=== PATIENT | female | born 1985 | race African-American/Black ===

== ENCOUNTER → 2021-04-23 08:57 | Outpatient (BNVA) | payer OTHER, SELFPAY | PROVIDERS: Visit Provider Surgery | DX: E66.01 Morbid (severe) obesity due to excess calories (principal); Z68.42 Body mass index [BMI] 45.0-49.9, adult | CPT/HCPCS: 99202 ==

== ENCOUNTER 2021-05-07 07:51 | Outpatient (REF) | payer OTHER, SELFPAY ==
--- NOTE | ~2021-05-07 | XR_ITS ---
EXAMINATION: XR CHEST CLINICAL INFORMATION: Shortness of breath COMPARISON: None TECHNIQUE: 2 views of the chest were obtained. FINDINGS: No significant abnormality is noted involving the heart, lungs, mediastinum, bony thorax or soft tissues. XR/XR chest 2V IMPRESSION: Unremarkable examination.
--- NOTE | 2021-05-07 08:09 | ECG_ITS ---
Test Reason : SOB Blood Pressure : / mmHG Vent. Rate : 060 BPM Atrial Rate : 060 BPM P-R Int : 146 ms QRS Dur : 106 ms QT Int : 420 ms P-R-T Axes : 064 057 018 degrees QTc Int : 420 ms Normal sinus rhythm with sinus arrhythmia Incomplete right bundle branch block Borderline ECG No previous ECGs available Referred By: Jannet Feliz Electronically Signed By:Jordan Hirsch
[2021-05-07 08:48] LABS: MANUAL DIFF FLAG NO
[2021-05-07 08:58] LABS: Basophils Percent Auto 0.7 % (0-2); Eosinophils Absolute Auto 0.3 X10*3/uL (0.0-0.4); Eosinophils Percent Auto 6.1 % (0-4); Hematocrit 39.5 % (37-47); Hemoglobin 12.6 g/dl (12.0-16.0); Imm Gran Abs Auto 0.01 X10*3/uL (0.00-0.03); Imm Gran Pct Auto 0.2 % (0.0-0.4); Lymphocytes Absolute Auto 1.5 X10*3/uL (1.2-4.9); Mean Corpuscular HGB Conc 31.9 g/dl (31.0-35.0); Mean Corpuscular Hemoglobin 27.8 pg (27.0-33.0); Mean Platelet Volume 11.8 fL (9.4-12.3); Monocytes Absolute Auto 0.4 X10*3/uL (0.1-1.2); Monocytes Percent Auto 9.4 % (2-11); Neutrophils Absolute Auto 2.1 X10*3/uL (2.0-8.3); Neutrophils Percent Auto 49.6 % (45-73); Platelet Count 217 X10*3/uL (160-400); Red Blood Count 4.54 X10*6/uL (4.20-5.50); Red Cell Distribution Width 13.1 % (11.0-16.0); White Blood Count 4.3 X10*3/uL (4.8-10.8)
[2021-05-07 09:27] LABS: Estimated Average Glucose 103 mg/dL; Hemoglobin A1c % 5.2 %
[2021-05-07 09:37] LABS: Alanine Aminotransferase 24 U/L (0-31); Albumin Level 4.2 g/dL (3.5-5.0); Alkaline Phosphatase 72 U/L (39-117); Anion Gap 11 (12-20); Aspartate Amino Transferase 35 U/L (5-31); Bilirubin Total 0.6 mg/dL (0.0-1.0); Blood Urea Nitrogen 15 mg/dL (9-16); C Reactive Protein 1.13 mg/dL (< or = 0.50); Calcium 9.7 mg/dL (8.4-10.2); Carbon Dioxide 28 mmol/L (22-29); Chloride 103 mmol/L (96-108); Cholesterol 164 mg/dL; Estimated Glomerular Filt Rate > 60; Glucose Fasting 84 mg/dL (60-99); HDL Cholesterol 40 mg/dL; Iron 55 mcg/dL (30-160); LDL Cholesterol Calculated 111 mg/dl; Percent Iron Saturation 14 % (15-50); Potassium 4.3 mmol/L (3.3-5.1); Sodium 138 mmol/L (135-145); Total Iron Binding Capacity 398 mcg/dL (228-428); Total Protein 7.5 g/dL (6.5-8.0); Triglycerides 66 mg/dL; Unsaturated Iron Binding 343 ug/dL
[2021-05-07 09:50] LABS: Vitamin B12 511 pg/mL (200-900)
[2021-05-07 09:58] LABS: Vitamin D 25-OH Total 16.8 ng/mL (>30)
[2021-05-09 11:32] LABS: Calcium (PTHI) 9.4 mg/dL (8.6-10.2); PTHI 66 pg/mL (14-64)
[2021-05-10 06:25] LABS: Zinc 77 mcg/dL (60-130)
[2021-05-11 02:36] LABS: Vitamin A 77 mcg/dL (38-98)
[2021-05-12 11:41] LABS: Vitamin B1 7 nmol/L (8-30)
== END 2021-05-07 07:52 | disposition home or self-care (01) ==
LOC: HO.LAB 07:51
PROVIDERS: Visit Provider Surgery
DX: Z01.818 Encounter for other preprocedural examination (principal); K91.2 Postsurgical malabsorption, not elsewhere classified; R06.02 Shortness of breath; Z90.3 Acquired absence of stomach [part of]
CPT/HCPCS: 36415; 71046; 80053; 80061; 82306; 82607; 83036; 83540; 83970; 84425; 84443; 84590; 84630; 85025; 86140; 93005

== ENCOUNTER → 2021-05-08 08:18 | Outpatient (BNVA) | payer OTHER, SELFPAY | PROVIDERS: Visit Provider Surgery | DX: Z13.89 Encounter for screening for other disorder (principal) | CPT/HCPCS: Q3014 ==

== ENCOUNTER → 2021-05-24 08:06 | Outpatient (BNVA) | payer OTHER, SELFPAY | PROVIDERS: Visit Provider Dietitian, Registered | DX: E66.01 Morbid (severe) obesity due to excess calories (principal); Z68.42 Body mass index [BMI] 45.0-49.9, adult | CPT/HCPCS: 97802 ==

== ENCOUNTER → 2021-06-01 08:28 | Outpatient (BNVA) | payer OTHER, SELFPAY | PROVIDERS: Visit Provider Physician Assistant | CPT/HCPCS: Q3014 ==

== ENCOUNTER 2021-06-18 09:43 | Outpatient (REF) | payer OTHER, SELFPAY ==
[2021-06-20 13:09] LABS: H Pylori Breath Test Negative (Negative)
== END 2021-06-18 09:44 | disposition home or self-care (01) ==
LOC: HO.LNP 09:43
PROVIDERS: Visit Provider Surgery
DX: Z01.818 Encounter for other preprocedural examination (principal); E66.01 Morbid (severe) obesity due to excess calories; Z68.41 Body mass index [BMI] 40.0-44.9, adult; Z71.3 Dietary counseling and surveillance
CPT/HCPCS: 83013; 99211; 99212

== ENCOUNTER → 2021-07-02 09:18 | Outpatient (BNVA) | payer OTHER, SELFPAY | PROVIDERS: Visit Provider Physician Assistant Surgical ==

== ENCOUNTER → 2021-07-09 09:21 | Outpatient (BNVA) | payer OTHER, SELFPAY | PROVIDERS: Visit Provider Surgery | DX: E66.01 Morbid (severe) obesity due to excess calories (principal); Z68.41 Body mass index [BMI] 40.0-44.9, adult | CPT/HCPCS: 99212 ==

== ENCOUNTER → 2021-08-08 12:49 | Outpatient (BNVA) | payer OTHER, SELFPAY | PROVIDERS: Visit Provider Surgery | DX: E66.9 Obesity, unspecified (principal); Z68.39 Body mass index [BMI] 39.0-39.9, adult; Z71.3 Dietary counseling and surveillance | CPT/HCPCS: 99212 ==

== ENCOUNTER 2021-08-23 09:54 | Outpatient (REF) | payer OTHER, SELFPAY ==
--- NOTE | ~2021-08-23 | US_ITS ---
EXAMINATION: US COMPLETE ABDOMEN WITH LIVER ELASTOGRAPHY CLINICAL INFORMATION: Obesity COMPARISON: None. TECHNIQUE: Real-time imaging of the abdominal viscera. Noninvasive ultrasound liver fibrosis assessment is performed using Susan ElastPQ point quantification shear wave elastography (pSWE) with a C5-2 MHz transducer. Multiple elastography samples are obtained. FINDINGS: PANCREAS: Normal. ABDOMINAL AORTA: The proximal, middle, and distal aortic segments are normal in caliber. INFERIOR VENA CAVA: Visualized portions are normal. LIVER: Normal. The liver demonstrates normal size, contour and echogenicity. No focal lesion or intrahepatic biliary duct dilatation. The right lobe measures 17 cm in length. The left lobe measures 12 cm in length. Portal flow is normal/hepatopedal Shear wave liver elastography median stiffness is 1.2 m/s (reference: normal median stiffness is 1.3 m/s or less). IQR/median stiffness to assess sampling precision is 0.2 (reference: good quality data set is IQR/median stiffness of 0.15 or less). GALLBLADDER: Normal. The gallbladder is physiologically distended without evidence of stones, sludge, polyps, wall thickening or pericholecystic fluid. COMMON BILE DUCT: Normal in caliber measuring 0.4 cm in diameter. RIGHT KIDNEY: Normal. No hydronephrosis. No renal calculi or focal parenchymal lesions. The kidney measures 13 cm in maximum dimension. LEFT KIDNEY: Normal. No hydronephrosis. No renal calculi or focal parenchymal lesions. The kidney measures 13 cm in maximum dimension. SPLEEN: Normal. The spleen measures 11 cm in maximum dimension. FREE FLUID: None. US/US abdomen comp w elastography IMPRESSION: 1. Impression: Normal liver ultrasound. 2. Liver elastography: Slightly limited due to sampling error. Normal liver stiffness. REFERENCE: Society of Radiologists in Ultrasound Liver Stiffness Thresholds (2020): LIVER STIFFNESS THRESHOLDS: *Liver Stiffness equal or less than 1.3 m/s: High probability of being normal. *Liver Stiffness less than 1.7 m/s: In the absence of other known clinical signs, rules out compensated advanced chronic liver disease. *Liver Stiffness 1.7-2.1 m/s: Suggestive of compensated advanced chronic liver disease but need further test for confirmation. *Liver Stiffness over 2.1 m/s: Rules in compensated advanced chronic liver disease. *Liver Stiffness over 2.4 m/s: Suggestive of clinically significant portal hypertension. QUALITY OF DATA SET: *IQR/Median value equal or less than 0.15 implies a quality data set. *IQR/Median value over 0.15 implies a poor quality data set. SIGNIFICANT CHANGE FROM PRIOR EXAM: Significant change if liver stiffness measurement is 10% or greater from prior exam. OTHER CONSIDERATIONS: The stage of liver fibrosis may be overestimated in the setting of acute hepatitis, liver inflammation, elevated liver function tests, hepatic vascular congestion, obstructive cholestasis, non-fasting state, and infiltrative diseases such as amyloidosis and lymphoma. In some patients with NAFLD, the liver stiffness thresholds for compensated advanced chronic liver disease may be lower. In causes other than viral hepatitis and NAFLD, liver stiffness thresholds are not well established.
--- NOTE | ~2021-08-23 | FL_ITS ---
EXAMINATION: XR FLUOROSCOPY UPPER GI WITH AIR CLINICAL INFORMATION: Obesity. COMPARISON: None TECHNIQUE: Air-contrast upper GI examination. FINDINGS: There is normal apposition of the vocal cords while saying E. There is normal elevation of the soft palate while saying candy. Patient swallowed thin and thick barium without difficulty. No nasopharyngeal reflux or tracheal aspiration. No Zenker's diverticulum or significant cricopharyngeal hypertrophy. The esophagus demonstrated normal mucosal pattern without evidence of persistent stricture. No hiatal hernia is seen. No gastroesophageal reflux was elicited during the study including with water siphon test. The stomach demonstrates normal distensibility without abnormal mass or ulceration. There was delay in gastric emptying present with some thickened duodenal folds, question of duodenitis. Remainder of the duodenal sweep was unremarkable. FLUOROSCOPY TIME: 2.2 minutes DOSE AREA PRODUCT: 19.528 Gy-cm2 (salgado-centimeter squared) FL/FL upper GI w air IMPRESSION: Question duodenitis. Otherwise unremarkable air-contrast upper GI examination and small bowel follow-through.
== END 2021-08-23 09:55 | disposition home or self-care (01) ==
LOC: HO.US 09:54
PROVIDERS: Visit Provider Surgery
DX: Z01.818 Encounter for other preprocedural examination (principal); E66.01 Morbid (severe) obesity due to excess calories
CPT/HCPCS: 74246; 76705; 76981

== ENCOUNTER → 2021-08-27 08:22 | Outpatient (BNVA) | payer OTHER, SELFPAY | PROVIDERS: Visit Provider Surgery | DX: E66.9 Obesity, unspecified (principal); Z68.37 Body mass index [BMI] 37.0-37.9, adult | CPT/HCPCS: Q3014 ==

== ENCOUNTER → 2021-09-04 09:54 | Outpatient (BNVA) | payer OTHER, SELFPAY | PROVIDERS: Visit Provider Physician Assistant ==

== ENCOUNTER 2021-09-06 06:19 | Inpatient (IN) | payer OTHER, SELFPAY ==
[2021-09-01 08:00] LABS: Hematocrit 40.2 % (37.0-47.0); Hemoglobin 12.7 g/dl (12.0-16.0); Mean Corpuscular HGB Conc 31.6 g/dl (31.0-35.0); Mean Corpuscular Hemoglobin 27.7 pg (27.0-33.0); Mean Corpuscular Volume 87.8 fL (80.0-98.0); Mean Platelet Volume 12.4 fL (9.4-12.3); Platelet Count 171 X10*3/uL (160-400); Red Blood Count 4.58 X10*6/uL (4.20-5.50); Red Cell Distribution Width 14.6 % (11.0-16.0)
[2021-09-01 08:02] LABS: WBC ABN SCTR FOR CBC 1
[2021-09-01 08:06] LABS: INTERNATIONAL NORM RATIO 1.2 (0.9-1.1); Prothrombin Time 13.5 SEC (9.9-13.0)
[2021-09-01 08:11] LABS: Estimated Average Glucose 94 mg/dL; Hemoglobin A1c % 4.9 %
[2021-09-01 08:30] LABS: Alanine Aminotransferase 13 U/L (0-31); Alkaline Phosphatase 66 U/L (39-117); Anion Gap 12 (12-20); Aspartate Amino Transferase 17 U/L (5-31); Bilirubin Total 0.9 mg/dL (0.0-1.0); Blood Urea Nitrogen 16 mg/dL (9-16); Calcium 9.5 mg/dL (8.4-10.2); Carbon Dioxide 25 mmol/L (22-29); Chloride 106 mmol/L (96-108); Cholesterol 165 mg/dL; Estimated Glomerular Filt Rate > 60; Glucose Random 91 mg/dL (60-115); HDL Cholesterol 41 mg/dL; LDL Cholesterol Calculated 111 mg/dl; Potassium 3.9 mmol/L (3.3-5.1); Sodium 139 mmol/L (135-145); Total Protein 7.2 g/dL (6.5-8.0); Triglycerides 65 mg/dL
[2021-09-01 08:50] LABS: Band Neutrophils Percent 1 % (3-5); Eosinophils Percent Manual 6 % (0-4); Lymphocytes Percent Manual 24 % (20-40); Monocytes Percent Manual 10 % (2-11); Neutrophils Percent Manual 59 % (45-73)
[2021-09-01 08:52] LABS: Acanthocytes 1+ (0-2) /OIF; Insulin 9 uU/mL (2-29); Large Platelet PRESENT; Ovalocytes 1+ (5-14) /OIF; Platelet Estimate NORMAL (NORMAL); Platelet Morphology Comment NOTED; RBC Morphology NOTED; TSH reflex Free T4 0.66 uIU/mL (0.32-4.0)
[2021-09-01 08:53] LABS: Eosinophils Absolute Manual 0.2 X10*3/uL (0.0-0.4); Lymphocytes Absolute Manual 0.9 X10*3/uL (1.2-4.9); Monocytes Absolute Manual 0.4 X10*3/uL (0.1-1.2); Neutrophils Absolute Manual 2.3 X10*3/uL (2.0-8.3); White Blood Count 3.9 X10*3/uL (4.8-10.8)
--- NOTE | 2021-09-01 10:37 | MHC.SHP ---
Pre-Procedural Eval Section A Date of Service: 09/01/21 The patient is an INPATIENT: Yes The History & Physical has been completed within 30 days and I have reviewed it.: Yes Section B Chief Complaint: Obesity Relevant Family History (Specify if Yes): Yes Relevant Social History: None Present Medications: None Medical History: No relevant PMH History of Previous Operations: No relevant previous surgery Allergies: Allergies Allergy/AdvReac Type Severity Reaction Status Date / Time bee venom protein (honey bee) AdvReac Severe Swelling Verified 08/27/21 11:05 sulfamethoxazole AdvReac Severe Swelling Verified 08/27/21 11:05 [From Bactrim] trimethoprim [From Bactrim] AdvReac Severe Swelling Verified 08/27/21 11:05 shellfish derived AdvReac Intermediate Hives Verified 08/27/21 11:05 Iodinated Contrast Media AdvReac Mild Hives Verified 08/27/21 11:05 Review of Systems Sugical H&P ROS: Negative: Constitution, Cardiovascular, Respiratory, Neurological, Psychiatric, Hem-Onc, Allergic/Immunologic, Gastrointestinal, Genitourinary, Musculoskeletal, Integumentary, Endocrine and Eyes/Ears/Nose/Throat Exam Surgical H&P Exam: Normal: HEENT, Normal: Heart, Normal: Lungs, Normal: Extremities, Normal: Abdomen, Normal: Skin and Normal: Neurological Plan Diagnosis/Plan: Unchanged I have reviewed the history and physical and performed a pertinent physical examination on my patient. No changes have occurred unless specified.
[2021-09-03 09:37] VITALS: BMI 37.1
--- NOTE | 2021-09-05 09:11 | P.CONAN_ITS ---
Documented by User: Rentaa Cash NP 09/05/21 09:12 HPI - Anesthesia Eval Consult details Narrative: 35yo F for Gastrectomy Sleeve, EGD, Possible Diaphragmatic Hernia, Possible Ventral Hernia, Possible open ECHO ordered by Dr Farr for francis GUZMAN. Surgery moved up and ECHO not pe rformed. Reviewed with Dr Beltran. Ok to proceed without ECHO. PMFSH Active Problems Active Problems: All Active Problems (Updated 09/03/21 @ 09:33 by Karley Holt RN) Preoperative examination (Acute) Shortness of breath (Acute) BMI 45.0-49.9, adult (Acute) Morbid obesity due to excess calories (Acute) Bipolar 1 disorder, mixed (Acute) Vitamin D deficiency (Acute) BMI 40.0-44.9, adult (Acute) Right bundle branch block (Acute) Obesity (Acute) BMI 39.0-39.9,adult (Acute) Vitamin B1 deficiency (Acute) BMI 37.0-37.9, adult (Acute) Past Medical History Medical History (Updated 09/03/21 @ 09:33 by Karley Holt RN) Anxiety Bipolar disorder COVID-19 vaccine series completed Depression Insomnia PCOS (polycystic ovarian syndrome) Family History Family History Maternal Uncle Heart disease Hypertension High cholesterol Arthritis Father Cancer Sister Hypertension High cholesterol Autoimmune disorder Seizure Daughter No problems noted. Son No problems noted. Surgical History Surgical History (Updated 09/03/21 @ 09:33 by Karley Holt RN) Hx of dilation and curettage Hx of tonsillectomy Social History Social History (Updated 09/06/21 @ 07:32 by Natalie Ferguson MD) Household Members: Spouse and Children Are you a primary resident care manager to a significant other at home: No Do you presently have visiting nurse or other home services: Yes ([facility] once/month to administer paliperidone injection) Alcohol intake: never Patient Tobacco Use Status: Former Tobacco user Quit Date: 06/2021 Tobacco use type: Cigarette Cigarettes Per Day: 2 Years Smoked: 10 Use of substances other than those prescribed or required for medical reasons: No Have you been hit, kicked, punched, or otherwise hurt by someone within the past year? If so, by whom?: No Are you DNR?: No Advance Directives: No Advance Directives Information Provided: No Advance Directives on File: No Recently lost weight without trying: No Eating poorly because of decreased appetite: No Nutrition Risks: No Nutritional Risk Patient : No FDLMP: 08/31/21 : No Poor oral hygiene: No (chipped teeth upper & lower back right) Meds Allergies Allergy/AdvReac Type Severity Reaction Status Date / Time brexpiprazole [From Rexulti] Allergy Intermediate chills/vomi Verified 09/03/21 09:34 ting/diapho resis bee venom protein (honey bee) AdvReac Severe Swelling Verified 08/27/21 11:05 sulfamethoxazole AdvReac Severe Swelling Verified 08/27/21 11:05 [From Bactrim] trimethoprim [From Bactrim] AdvReac Severe Swelling Verified 08/27/21 11:05 shellfish derived AdvReac Intermediate Hives Verified 08/27/21 11:05 Iodinated Contrast Media AdvReac Mild Hives Verified 08/27/21 11:05 Home Medications Medication Instructions Recorded Confirmed Last Taken Type paliperidone palmitate 234 mg/1.5 234 mg IM QMONTH 08/08/21 09/03/21 Unknown History mL intramuscular syringe (Invega Sustenna) Exam Exam Date and Time: September 05, 2021 0911 Height,Weight and Vital Signs: Height 5 ft 6 in Weight 104.508 kg Pertinent Lab Results Pertinent Lab Results: Laboratory Tests 09/01/21 09/01/21 09/01/21 07:35 07:35 07:35 WBC 3.9 L RBC 4.58 Hgb 12.7 Hct 40.2 MCV 87.8 MCH 27.7 MCHC 31.6 RDW 14.6 Plt Count 171 MPV 12.4 H Immature Gran % (Auto) Cancelled Neut % (Auto) Cancelled Lymph % (Auto) Cancelled [place] % (Auto) Cancelled Eos % (Auto) Cancelled Baso % (Auto) Cancelled Lymph # (Auto) Cancelled [place] # (Auto) Cancelled Eos # (Auto) Cancelled Baso # (Auto) Cancelled Abs Immat Gran (auto) Cancelled Absolute Neuts (auto) Cancelled Absolute Nucleated RBC 0.000 Nucleated RBC % (auto) 0.0 Neutrophils % (Manual) 59 Band Neutrophils % 1 L Lymphocytes % (Manual) 24 Monocytes % (Manual) 10 Eosinophils % (Manual) 6 H Abs Neuts (Manual) 2.3 Lymphocytes # (Manual) 0.9 L Monocytes # (Manual) 0.4 Eosinophils # (Manual) 0.2 Platelet Estimate NORMAL Large Platelets PRESENT Plt Morphology Comment NOTED RBC Morphology NOTED Ovalocytes 1+ (5-14) Acanthocytes (Spur) 1+ (0-2) PT 13.5 H INR 1.2 H APTT 37.0 Sodium 139 Potassium 3.9 Chloride 106 Carbon Dioxide 25 Anion Gap 12 BUN 16 Creatinine 0.78 Estim Creat Clear Calc TNP Estimated GFR > 60 Random Glucose 91 Estimat Average Glucose Hemoglobin A1c % Insulin Level 9 Calcium 9.5 Total Bilirubin 0.9 AST 17 D ALT 13 Alkaline Phosphatase 66 C-Reactive Protein 0.80 H Total Protein 7.2 Albumin 4.0 Triglycerides 65 Cholesterol 165 LDL Cholesterol, Calc 111 HDL Cholesterol 41 TSH 0.66 Blood Type Antibody Screen 09/01/21 09/01/21 07:35 07:35 WBC RBC Hgb Hct MCV MCH MCHC RDW Plt Count MPV Immature Gran % (Auto) Neut % (Auto) Lymph % (Auto) [place] % (Auto) Eos % (Auto) Baso % (Auto) Lymph # (Auto) [place] # (Auto) Eos # (Auto) Baso # (Auto) Abs Immat Gran (auto) Absolute Neuts (auto) Absolute Nucleated RBC Nucleated RBC % (auto) Neutrophils % (Manual) Band Neutrophils % Lymphocytes % (Manual) Monocytes % (Manual) Eosinophils % (Manual) Abs Neuts (Manual) Lymphocytes # (Manual) Monocytes # (Manual) Eosinophils # (Manual) Platelet Estimate Large Platelets Plt Morphology Comment RBC Morphology Ovalocytes Acanthocytes (Spur) PT INR APTT Sodium Potassium Chloride Carbon Dioxide Anion Gap BUN Creatinine Estim Creat Clear Calc Estimated GFR Random Glucose Estimat Average Glucose 94 Hemoglobin A1c % 4.9 Insulin Level Calcium Total Bilirubin AST ALT Alkaline Phosphatase C-Reactive Protein Total Protein Albumin Triglycerides Cholesterol LDL Cholesterol, Calc HDL Cholesterol TSH Blood Type AB Positive Antibody Screen NEGATIVE Narrative Narrative: EKG 05/2021 Vent. Rate : 060 BPM ? ? Atrial Rate : 060 BPM ?? P-R Int : 146 ms? QRS Dur : 106 ms ? ? QT Int : 420 ms ? ? ? P-R-T Axes : 064 057 018 degrees ?? QTc Int : 420 ms ? Normal sinus rhythm with sinus arrhythmia Incomplete right bundle branch block Borderline ECG No previous ECGs available Assessment and Plan Assessment Anesthesia Assessment: Chart Reviewed Documented by User: Natalie Ferguson MD 09/06/21 07:41 [facility] Active Problems Active Problems: All Active Problems (Updated 09/03/21 @ 09:33 by Karley Holt RN) Preoperative examination (Acute) Shortness of breath (Acute) BMI 45.0-49.9, adult (Acute) Morbid obesity due to excess calories (Acute) Bipolar 1 disorder, mixed (Acute) Vitamin D deficiency (Acute) BMI 40.0-44.9, adult (Acute) Right bundle branch block (Acute) Obesity (Acute) BMI 39.0-39.9,adult (Acute) Vitamin B1 deficiency (Acute) BMI 37.0-37.9, adult (Acute) Denies SHAY On paliperidone once a month. Usually indicated for schizophrenia and schizoaffective disorder but patient states getting it for anxiety Past Medical History Medical History (Updated 09/03/21 @ 09:33 by Karley Holt RN) Anxiety Bipolar disorder COVID-19 vaccine series completed Depression Insomnia PCOS (polycystic ovarian syndrome) Family History Family History Maternal Uncle Heart disease Hypertension High cholesterol Arthritis Father Cancer Sister Hypertension High cholesterol Autoimmune disorder Seizure Daughter No problems noted. Son No problems noted. Family history of problems with anesthesia: No Surgical History Surgical History (Updated 09/03/21 @ 09:33 by Karley Holt RN) Hx of dilation and curettage Hx of tonsillectomy History of Problems with Anesthesia: No Social History Social History (Updated 09/06/21 @ 07:32 by Natalie Ferguson MD) Household Members: Spouse and Children Are you a primary resident care manager to a significant other at home: No Do you presently have visiting nurse or other home services: Yes ([facility] once/month to administer paliperidone injection) Alcohol intake: never Patient Tobacco Use Status: Former Tobacco user Quit Date: 06/2021 Tobacco use type: Cigarette Cigarettes Per Day: 2 Years Smoked: 10 Use of substances other than those prescribed or required for medical reasons: No Have you been hit, kicked, punched, or otherwise hurt by someone within the past year? If so, by whom?: No Are you DNR?: No Advance Directives: No Advance Directives Information Provided: No Advance Directives on File: No Recently lost weight without trying: No Eating poorly because of decreased appetite: No Nutrition Risks: No Nutritional Risk Patient : No FDLMP: 08/31/21 : No Poor oral hygiene: No (chipped teeth upper & lower back right) Meds Allergies Allergy/AdvReac Type Severity Reaction Status Date / Time brexpiprazole [From Rexulti] Allergy Intermediate chills/vomi Verified 09/03/21 09:34 ting/diapho resis bee venom protein (honey bee) AdvReac Severe Swelling Verified 08/27/21 11:05 sulfamethoxazole AdvReac Severe Swelling Verified 08/27/21 11:05 [From Bactrim] trimethoprim [From Bactrim] AdvReac Severe Swelling Verified 08/27/21 11:05 shellfish derived AdvReac Intermediate Hives Verified 08/27/21 11:05 Iodinated Contrast Media AdvReac Mild Hives Verified 08/27/21 11:05 Home Medications Medication Instructions Recorded Confirmed Last Taken Type paliperidone palmitate 234 mg/1.5 234 mg IM QMONTH 08/08/21 09/03/21 Unknown History mL intramuscular syringe (Invega Sustenna) Exam Height,Weight and Vital Signs: Height 5 ft 6 in Weight 104.508 kg Vital Signs Temp Pulse Resp BP Pulse Ox 09/06/21 06:39 97.7 F 75 16 107/61 100 Pertinent Lab Results Pertinent Lab Results: Laboratory Tests 09/01/21 09/01/21 09/01/21 07:35 07:35 07:35 WBC 3.9 L RBC 4.58 Hgb 12.7 Hct 40.2 MCV 87.8 MCH 27.7 MCHC 31.6 RDW 14.6 Plt Count 171 MPV 12.4 H Immature Gran % (Auto) Cancelled Neut % (Auto) Cancelled Lymph % (Auto) Cancelled [place] % (Auto) Cancelled Eos % (Auto) Cancelled Baso % (Auto) Cancelled Lymph # (Auto) Cancelled [place] # (Auto) Cancelled Eos # (Auto) Cancelled Baso # (Auto) Cancelled Abs Immat Gran (auto) Cancelled Absolute Neuts (auto) Cancelled Absolute Nucleated RBC 0.000 Nucleated RBC % (auto) 0.0 Neutrophils % (Manual) 59 Band Neutrophils % 1 L Lymphocytes % (Manual) 24 Monocytes % (Manual) 10 Eosinophils % (Manual) 6 H Abs Neuts (Manual) 2.3 Lymphocytes # (Manual) 0.9 L Monocytes # (Manual) 0.4 Eosinophils # (Manual) 0.2 Platelet Estimate NORMAL Large Platelets PRESENT Plt Morphology Comment NOTED RBC Morphology NOTED Ovalocytes 1+ (5-14) Acanthocytes (Spur) 1+ (0-2) PT 13.5 H INR 1.2 H APTT 37.0 Sodium 139 Potassium 3.9 Chloride 106 Carbon Dioxide 25 Anion Gap 12 BUN 16 Creatinine 0.78 Estim Creat Clear Calc TNP Estimated GFR > 60 Random Glucose 91 Estimat Average Glucose Hemoglobin A1c % Insulin Level 9 Calcium 9.5 Total Bilirubin 0.9 AST 17 D ALT 13 Alkaline Phosphatase 66 C-Reactive Protein 0.80 H Total Protein 7.2 Albumin 4.0 Triglycerides 65 Cholesterol 165 LDL Cholesterol, Calc 111 HDL Cholesterol 41 TSH 0.66 Blood Type Antibody Screen 09/01/21 09/01/21 07:35 07:35 WBC RBC Hgb Hct MCV MCH MCHC RDW Plt Count MPV Immature Gran % (Auto) Neut % (Auto) Lymph % (Auto) [place] % (Auto) Eos % (Auto) Baso % (Auto) Lymph # (Auto) [place] # (Auto) Eos # (Auto) Baso # (Auto) Abs Immat Gran (auto) Absolute Neuts (auto) Absolute Nucleated RBC Nucleated RBC % (auto) Neutrophils % (Manual) Band Neutrophils % Lymphocytes % (Manual) Monocytes % (Manual) Eosinophils % (Manual) Abs Neuts (Manual) Lymphocytes # (Manual) Monocytes # (Manual) Eosinophils # (Manual) Platelet Estimate Large Platelets Plt Morphology Comment RBC Morphology Ovalocytes Acanthocytes (Spur) PT INR APTT Sodium Potassium Chloride Carbon Dioxide Anion Gap BUN Creatinine Estim Creat Clear Calc Estimated GFR Random Glucose Estimat Average Glucose 94 Hemoglobin A1c % 4.9 Insulin Level Calcium Total Bilirubin AST ALT Alkaline Phosphatase C-Reactive Protein Total Protein Albumin Triglycerides Cholesterol LDL Cholesterol, Calc HDL Cholesterol TSH Blood Type AB Positive Antibody Screen NEGATIVE Laboratory Results - last 24 hr 09/06/21 09/06/21 06:16 06:18 Urine Test NEGATIVE COVID-19 (ALEXEY) Negative COVID-19 Clin Com See Note Airway Mallampati Class: II TM Dist: >3cm Neck ROM: Full Loose/Missing/Broken Teeth: Yes (Broken top and bottom right back) Heart: RRR Lungs: CTAB Assessment and Plan Assessment Anesthesia Assessment: Anesthesia Plan Discussed Final Anesthetic Review Family History of Problems with Anesthesia: No History of Problems with Anesthesia: No NPO: Yes ASA Class: III Final Preanesthetic Review: No Changes in Pt Med Stat, Meds/Allgs Chart Reviewed, Consent Obtained/Reviewed and Anes Risks/Benef Reviewed Patient Risk: Intermediate Procedure Risk: Intermediate Assessment/Block/Sedation in SS: Assess/Block/Sedation-SS Anesthetic Plan Anesthetic Plan: GA Disposition: Standard PACU and Inp. Admit - Standard Bed
[2021-09-06] VITALS (15 sets, daily range): BP systolic 107–137; BP diastolic 59–89; PULSE 64–76; RESP 12–18; TEMP 36.3–37.1; O2SAT 97–100
[2021-09-06 06:44] LABS: UPreg QC Valid YES; Urine Pregnancy NEGATIVE (NEGATIVE)
[2021-09-06 06:48] LABS: COVID-19 Test Negative (Negative); IDNOW Serial# 9DD0AD1C
[2021-09-06] MEDS: Lactated Ringers 1,000 ML 999 ML IV (06:55)
--- NOTE | 2021-09-06 07:06 | PC.NURSE ---
went to attempt iv insertion with another rn and patient refusing at this time to attampt.
--- NOTE | 2021-09-06 09:59 | PM.OP ---
Brief Operative Note Date of Service: 09/06/21 Pre-op diagnosis: Severe obesity with comorbidities (see below) Post-op diagnosis: same Procedure: INITIAL PATIENT BMI ON PRESENTATION AT OUR OFFICE: 47.8 kg/m2 LAST BMI BEFORE SURGERY: 36.9 kg/m2 COMORBIDITIES: depression, anxiety, bipolar, PCOS, insomnia, RBBB The patient participated in an intensive weekly lifestyle ?intervention and exercise program during which the patient ?has lost between the initial office visit and the last preoperative visit 64 lbs, or 21% of initial actual body weight. The patient met the BMI-criteria for bariatric surgery based on the BMI on initial presentation. The patient should not be penalized for achieving such weight loss because ?it is not sustainable long-term without surgical intervention and it was achieved in preparation for bariatric surgery ?under my direction and based on my published research ([email or web address]) ?that a 10% preoperative weight loss improves long-term weight loss after surgery and reduces perioperative complications.? Insurance carriers such as [facility] have endorsed my recommendations ?and have included in their policies criteria to include a 10% preoperative weight loss requirement. PROCEDURE: Esophago-gastroscopy, laparoscopic lysis of adhesions, laparoscopic sleeve gastrectomy and laparoscopic gastropexy INDICATIONS: This is a 35 year-old female who was electively scheduled for laparoscopic, possibly open sleeve gastrectomy. The risks and complications of the procedure were discussed with the patient in advance, particularly the possibility of ; pulmonary embolism; staple line leak; bleeding; GERD; cardiac, pulmonary, or renal complications; as well as long-term problems such as insufficient weight loss, vitamin deficiency, strictures, or ulcers. The patient understood all the risks, and was in agreement to proceed with surgery. DESCRIPTION OF PROCEDURE: After informed consent was obtained from the patient, the patient was given preoperative antibiotics, and was transferred to the operating room. After successful induction of general anesthesia, pneumatic compressive devices were placed on both lower extremities. An upper endoscopy was performed next. The oropharynx and esophagus appeared to be within normal limits. There was no diaphragmatic hernia present consistent with the findings of the preoperative upper GI. The stomach was entered. Then after all fluid and air were suctioned and the stomach was fully decompressed, the scope was withdrawn and secured in the mid esophagus. The patient was then prepped and draped in the usual sterile manner, and abdominal access was established at the right upper quadrant with the Deb technique. A 12 mm blunt port was inserted, and the abdomen was insufflated with CO2 to a pressure of 15 mmHg. Under direct visualization, additional ports were placed, specifically two 5 mm Versi-step ports to the left upper quadrant, and a 5 mm Versi-Step port to the right upper quadrant. 1% lidocaine plain was used to infiltrate all port sites as well as all fascia defects. Following that, the patient was placed in a steep reverse Trendelenburg position. An additional 5 mm port was placed to the right flank for the Mediflex retractor that was used to retract the left lobe of the liver. The gastro-esophageal fat pad was opened with the ultrasonic device (Thunderbeat, Olympus) and the anterior esophagus and hiatus were exposed. The angle of His was opened with the ultrasonic device the fundus of the stomach from any diaphragmatic and splenic attachments. I then opened the gastrocolic ligament between the transverse colon and the greater curvature of the stomach with the ultrasonic device to enter the lesser sac and facilitate the ligation of the short gastric vessels. I started at a mid-point along the greater curvature and using the Thunderbeat, all short gastric vessels were divided all the way to the angle of His until the left rachana was completely dissected at its entirety. I then divided the gastro-colic ligament distally to a distance of about 3-4 cm proximal to the esophagus. There were extensive congenital adhesions between the pancreas and posterior gastric wall. Those were lysed completely with the ultrasonic device. Adhesiolysis took approximately 45 min to complete. The stomach was then divided transversely with one Endo SYED-45 purple, two SYED-45 orange and four SYED-60 articulating orange loads using the AEON stapler and loads. Every effort was made that the gastric sleeve had a tubular shape and an even caliber throughout. Once the sleeve resection was completed, the staple line of the gastric sleeve was reinforced with Hemoclips. The resected stomach was retrieved without difficulty from the Deb port. A gastropexy was then performed in order to prevent postoperative GERD and partial gastric volvulus. Several interrupted 2.0 Surgidac sutures were placed between the sleeve's staple line and the previously divided greater omentum and gastro-colic ligament using the Endo-Stitch device. ?An upper endoscopy was performed. There was no narrowing at the GE junction. The scope was easily advanced all the way to the pylorus which was clearly visualized. There was no narrowing anywhere and the sleeve's caliber was even throughout. The sleeve's staple line was inspected and there was no evidence of ischemia, bleeding or dehiscence. At that point the gastroscope was withdrawn from the patient?s mouth while we were decompressing the bowel and the stomach from any remaining air. I looked into the lesser sac to see how the sleeve was situating and it was situating well. There was no bleeding from the staple line, spleen, or short gastric vessels. The Mediflex retractor was removed, and the undersurface of the liver was inspected and there was no bleeding. The patient was placed in supine position. I closed the fascial defect of the 12 mm port site with a figure of eight #1 Polysorb suture. Then 100 cc 0.25 % Marcaine plain with 10 mg of Dexamethasone were used to infiltrate the fascial closure as well as all skin incisions. At this point, the abdomen was deflated, all ports were removed under direct vision, and no bleeding was noted from any of the port sites. The skin incisions were irrigated with saline and were closed with 4-0 absorbable monofilament sutures. Steri-Strips and OpSites were used to cover all incisions. The patient was extubated and was transferred in stable condition to the recovery room for further care. I was present and performed all naqvi parts of the procedure. Enrique Beard was the miller first. There were no residents to assist with this case. Evan Bell MD, PhD, FACS Surgeon: Ja Bell MD Anesthesia: GETA, local and other (TAP block) Was an Bottom Precipitator Operator used for this Procedure?: Yes Bottom Precipitator Operator: Aurea Beard Estimated blood loss (mL): 10 IV fluids (mL): 2,500 Urine output (mL): 0 (No Maguire to record) Pathology: other (stomach) Condition: stable Disposition: PACU
--- NOTE | 2021-09-06 10:05 | PM.DS ---
DS: Providers Provider Date of Service: 09/07/21 Date of admission: 09/06/21 06:19 Primary care physician: Unknown Physician DS: Summary Hospital Course Hospital Course: ADMITTING DIAGNOSIS: morbid obesity, bipolar disorder DISCHARGE DIAGNOSIS: same, s/p laparoscopic sleeve gastrectomy PAST SURGICAL HISTORY: tonsillectomy PROCEDURE: upper endoscopy, laparoscopic sleeve gastrectomy DISCHARGE SUMMARY: History of Present Illness: The patient is a 35 year-old woman with a BMI of 47.8 kg/m2 and associated co-morbidities as described above. The patient had extensive work-up,lost 60.1lbs preoperatively and was electively scheduled for laparoscopic, possible open sleeve gastrectomy and gastropexy. Risks and complications of the surgery were discussed with the patient in advance, particularly the possibility of , pulmonary embolism, anastomotic leak, bleeding, bowel injury, GERD, cardiac, renal or pulmonary complications. The patient understood all the risks and was in agreement with the surgical plan. Hospital Course: The patient underwent an uneventful laparoscopic sleeve gastrectomy with gastropexy on the day of admission. Postoperatively, the patient was transferred to the surgical floor. The patient received IV Acetaminophen and IV dilaudid for pain control. Patient was started on bariatric phase 1 diet POD #0. On postoperative day one, the patient was feeling well without nausea, vomiting, fevers, or tachycardia. The patient had some mild incisional pain and the abdomen was soft. On the morning of postoperative day one, the patient was continued on 1 ounce of water or ice every half hour. During the day, the patient did fairly well, having some incisional pain, but able to ambulate adequately and to tolerate liquids well. Since the patient is doing well, we decided that the patient was ready to be discharged. The patient was given instructions to follow-up with me next week and to call my office for any fever over 101, persistent abdominal pain, nausea, vomiting, GERD, symptoms of DVT such as calf tenderness, or leg swelling, or pulmonary embolism such as chest pain or shortness of breath. The patient was also instructed to drink 40-60 ounces of liquids per day using the 1-ounce cups. The patient had been given prescriptions for Tylenol for pain, Zofran prn for nausea, and pantoprazole and carafate previously. The patient was encouraged to ambulate and use the incentive spirometer. The patient was allowed to shower, but no baths, and encouraged to stay active at home. All of these instructions were given to the patient personally. All questions were answered and the patient understood all instructions, the instructions were also given to the patient in print. Time Spent with Patient Time attestation: Total time spent providing and/or coordinating discharge services: Discharge coordination time: Less than 30 minutes Quality: Stroke Does the patient have a stroke diagnosis?: No Physical Exam Vital Signs: Vital Signs: Last Vital Signs Temp 97.7 F 09/06/21 06:39 Pulse 75 09/06/21 06:39 Resp 16 09/06/21 06:39 BP 107/61 09/06/21 06:39 Pulse Ox 100 09/06/21 06:39 BMI result Body Mass Index 37.1 DS: Data Data Completed and Pending Pending studies at discharge: Pending at discharge 09/06/21 09:10 Surgical [PTH] Routine Labs on day of discharge: Laboratory Results - last 24 hr 09/06/21 09/06/21 06:16 06:18 Urine Test NEGATIVE COVID-19 ([facility]) Negative COVID-19 Clin Com See Note Discharge Plan Discharge Anticipated Discharge Date/Time: 09/07/21 10:00 Patient Disposition: Home, Self-Care Discharge Diagnosis: s/p sleeve gastrectomy Referrals: Physician,Unknown J [Primary Care Provider] - 1 Week Discharge Medications: Continued pantoprazole 40 mg tablet,delayed release (DR/EC) 40 mg PO DAILY Qty: 30 RF: 2 sucralfate 100 mg/mL suspension 10 ml PO BID Qty: 400 RF: 2 ondansetron HCl [Zofran] 4 mg tablet 4 mg PO Q12H Qty: 20 RF: 0 Invega Sustenna 156 mg/mL syringe 156 mg IM QMONTH RF: 0 Discharge Orders: Discharge Order (Routine); Ordered 09/07/21 Ordered By: Ja Bell Diet: other Activity on Discharge: No heavy lifting Stand Alone Forms: Patient Portal Discharge page Care Plan Goals: weight loss Health Concerns: morbid obesity Plan of Treatment: No tub baths, sex or returning to work until discussed at first post op appointment. No exercise, alcohol, tobacco or illegal drug use. Continue to use incentive spirometer hourly while awake. Walk in home for 5- 10 minutes every 2 hours during the first week. Continue phase 1 diet today and start phase 2 diet tomorrow morning. Follow all instructions in the bariatric handbook and call with any questions. 1. Please call your doctor or come back to the emergency room should any new symptoms arise. 2. You will receive a courtesy call from [facility] 24-48 hours after discharge. 3. Activity: abstain from alcohol, practice limited stair climbing, no bending, no driving, no exercise, no illicit substances, no lifting, no sex, no tub bath, no work. 4. Diet: continue as discussed with Dr. Bell. 5. Dressing Change/Wound Care: Do not change or remove surgical dressings unless they are wet or soiled. 6. Call your doctor if: - Your temperature exceeds 101.5 F - You experience excessive pain or swelling - You have an unexpected reaction to medication - You have excessive bleeding - You experience continued vomiting/nausea - Your incision begins to separate - Your incision shows signs of infection such as increased redness, swelling, excessive pain, heat, or drainage (light blood or clear fluid is normal) 7. General instructions: No lifting greater than 5 lbs for the next 4 weeks. No driving within 24 hours of taking narcotic pain medications. If you do not move your bowels in the next 2 days, please take milk of magnesia over the counter. Please follow the post op diet and do not advance your diet until you are seen in the office in about 2 weeks. Please walk around your home every hour or two to prevent blood clots from forming in your legs. You do not need to wake from sleeping to walk. Please sleep in a bed or couch to prevent kinking at the hips and knees. Please take your incentive spirometer (your lung business intelligence director) home with you and use it for the next few days to prevent pneumonias. You may shower, no hot tubs, baths or swimming pools. Please call the office with any questions or concerns such as increasing abdominal pain, fever, chills, shortness of breath, chest pain, leg pain or swelling, or redness or drainage from your incisions. Do not hesitate to contact the office with any questions at . The patient's medical history has been reviewed and they are considered low risk for post op DVT and therefore DVT prophylaxis is not considered necessary. Travel after surgery was reviewed. The patient has not disclosed any travel plans during the first 30 days after surgery and they have been advised that within the first 30 days after surgery any bus, plane, train or car travel over 2 hours in duration is contraindicated due to the possibility of developing blood clots from immobility. Any travel, needs to include periods of ambulation of 10 minutes in duration every 2 hours. The patient was instructed to discuss any plans for travel during this period with their bariatric surgeon. Assessment: stable s/p sleeve gastrectomy Discharge Date/Time: 09/07/21 10:25
--- NOTE | 2021-09-06 10:08 | PM.PNGS ---
Subjective Subjective Date of Service: 09/07/21 Interval history: Patient has mild incisional pain, but was able to ambulate and use the incentive spirometer. She is tolerating phase 1 bariatric diet Physical Exam Vital Signs: Vital Signs: Last Vital Signs Temp 98.2 F 09/06/21 09:59 Pulse 74 09/06/21 10:04 Resp 16 09/06/21 10:04 BP 122/65 09/06/21 10:04 Pulse Ox 98 09/06/21 10:04 BMI result Body Mass Index 37.1 GI: Inspection: Yes normal to inspection, Yes incision (clean, dry and intact) and Yes obesity Extrem: Right lower extremity: normal to inspection (no calf tenderness) Left lower extremity: normal to inspection (no calf tenderness) Objective Data Active Medications Albuterol Sulfate (Albuterol Sulfate (0.083%) 2.5 Mg/3 Ml Vial.Neb) 2.5 mg INHALE ONCE PRN PRN Reason: Shortness of Breath/Wheezing Fentanyl (Fentanyl Citrate/Pf 100 Mcg/2 Ml Vial) 25 mcg IVPUSH Q5M PRN; Protocol PRN Reason: Pain, Moderate (Pain Scale 4-6 Hydromorphone HCl (Hydromorphone Hcl 0.5 Mg/0.5 Ml Syringe) 0.25 mg IVPUSH Q5M PRN; Protocol PRN Reason: Pain, Severe (Pain Scale 7-10) Lactated Ringer's (Lr) 1,000 mls @ 100 mls/hr IVCONT .Q10H SOCRATES Promethazine HCl 6.25 mg/ (Sodium Chloride) 50.25 mls @ 201 mls/hr IV ONCE PRN PRN Reason: Nausea and Vomiting Ondansetron HCl (Ondansetron Hcl 4 Mg/2 Ml Vial) 4 mg IVPUSH ONCE PRN PRN Reason: Nausea and Vomiting Paliperidone (Paliperidone Er 3 Mg Tab.Er.24) 1.5 mg PO DAILY ONE Stop: 09/06/21 20:01 Labs CBC & Chem 7: 09/07/21 05:30 09/07/21 05:30 Labs: Laboratory Results - last 24 hr 09/06/21 09/06/21 06:16 06:18 Urine Test NEGATIVE COVID-19 ([facility]) Negative COVID-19 Clin Com See Note Procedures Date of Service Date of Service: 09/07/21 Progress Note: A&P Assessment and plan (1) S/P laparoscopic sleeve gastrectomy: Status: Acute Assessment and Plan: s/p laparoscopic sleeve gastrectomy, lysis of adhesions repair and gastropexy Doing well Check am labs. If OK, will discharge home? (2) Obesity: Status: Acute (3) BMI 36.0-36.9,adult: Status: Acute (4) Congenital intra-abdominal adhesions: Status: Acute (5) Right bundle branch block: Status: Acute (6) Bipolar 1 disorder, mixed: Status: Acute (7) Anxiety: Status: Acute (8) Depression: Status: Acute (9) Insomnia: Status: Acute (10) PCOS (polycystic ovarian syndrome): Status: Acute Fall Risk Details Current Medications: Current Medications Albuterol Sulfate (Albuterol Sulfate (0.083%) 2.5 Mg/3 Ml Vial.Neb) 2.5 mg INHALE ONCE PRN PRN Reason: Shortness of Breath/Wheezing Fentanyl (Fentanyl Citrate/Pf 100 Mcg/2 Ml Vial) 25 mcg IVPUSH Q5M PRN; Protocol PRN Reason: Pain, Moderate (Pain Scale 4-6 Hydromorphone HCl (Hydromorphone Hcl 0.5 Mg/0.5 Ml Syringe) 0.25 mg IVPUSH Q5M PRN; Protocol PRN Reason: Pain, Severe (Pain Scale 7-10) Lactated Ringer's (Lr) 1,000 mls @ 100 mls/hr IVCONT .Q10H SOCRATES Promethazine HCl 6.25 mg/ (Sodium Chloride) 50.25 mls @ 201 mls/hr IV ONCE PRN PRN Reason: Nausea and Vomiting Ondansetron HCl (Ondansetron Hcl 4 Mg/2 Ml Vial) 4 mg IVPUSH ONCE PRN PRN Reason: Nausea and Vomiting Paliperidone (Paliperidone Er 3 Mg Tab.Er.24) 1.5 mg PO DAILY ONE Stop: 09/06/21 20:01 Time Spent With Patient Time: Total time spent is greater than 50% in coordination of care (as documented) at patient's floor/unit and/or counseling patient: Time with patient: less than 15 minutes Quality Stroke Does the patient have a stroke diagnosis?: No VTE Prior VTE?: No VTE Risk Level:: Surgical - moderate VTE Device Contraindication: N/A - Device Ordered VTE Drug Contraindication: Treatment Not Indicated
[2021-09-06] MEDS: ondansetron HCL 4 MG/2 ML VIAL IVPUSH ×2 (10:09→20:12)
[2021-09-06 10:19] LABS: Hemoglobin 12.2 g/dl (12.0-16.0)
[2021-09-06 10:31] LABS: Anion Gap 12 (12-20); Blood Urea Nitrogen 8 mg/dL (9-16); Calcium 9.3 mg/dL (8.4-10.2); Carbon Dioxide 25 mmol/L (22-29); Chloride 104 mmol/L (96-108); Creatinine Clr Calc Pharmacy 122.9; Estimated Glomerular Filt Rate > 60; Glucose Random 105 mg/dL (60-115); Potassium 3.9 mmol/L (3.3-5.1); Sodium 137 mmol/L (135-145)
[2021-09-06] MEDS: Lactated Ringers 1,000 ML 100 ML IVCONT ×2 (10:38→20:11)
[2021-09-06] MEDS: Famotidine/PF 20 MG/2 ML VIAL IVPUSH ×2 (10:38→20:12)
[2021-09-06] MEDS: ceFAZolin Sodium/Dextrose,Iso 2 GM/50 ML PIGGYBACK IV (13:25)
--- NOTE | 2021-09-06 13:40 | PHA.MEDREC ---
Pharmacy Consult ? Medication Reconciliation Pharmacy has completed the medication reconciliation. Patient reports she is on Invega 156 mg injections q month. She is no longer taking the PO tablets. Sucralafate and zofran are orders for post-op. Sarah Medellin, PharmD
[2021-09-06] MEDS: Metoclopramide HCl 10 MG/2 ML VIAL IVPUSH (14:29)
[2021-09-06] MEDS: 0.9 % Sodium Chloride Flush 3 ML SYRINGE IVFLUSH (20:12)
[2021-09-07] VITALS: BP 116/63; PULSE 67; RESP 14; TEMP 36.1; O2SAT 97
[2021-09-07 04:00] VITALS: BP 126/62; PULSE 74; RESP 16; TEMP 36; O2SAT 98
[2021-09-07] MEDS: ondansetron HCL 4 MG/2 ML VIAL IVPUSH (04:59)
[2021-09-07] MEDS: Lactated Ringers 1,000 ML 100 ML IVCONT (04:59)
[2021-09-07 05:45] LABS: MANUAL DIFF FLAG NO
[2021-09-07 05:48] LABS: Basophils Percent Auto 0.1 % (0-2); Eosinophils Percent Auto 0.1 % (0-4); Hemoglobin 11.3 g/dl (12.0-16.0); Imm Gran Abs Auto 0.03 X10*3/uL (0.00-0.03); Imm Gran Pct Auto 0.3 % (0.0-0.4); Lymphocytes Percent Auto 9.3 % (20-40); Mean Corpuscular HGB Conc 32.3 g/dl (31.0-35.0); Mean Corpuscular Volume 86.6 fL (80.0-98.0); Mean Platelet Volume 12.4 fL (9.4-12.3); Monocytes Percent Auto 9.4 % (2-11); Neutrophils Absolute Auto 8.4 x10*3/uL (2.0-8.3); Neutrophils Percent Auto 80.8 % (45-73); Platelet Count 171 X10*3/uL (160-400); Red Blood Count 4.04 X10*6/uL (4.20-5.50); Red Cell Distribution Width 14.6 % (11.0-16.0); White Blood Count 10.3 X10*3/uL (4.8-10.8)
[2021-09-07 06:03] LABS: Anion Gap 14 (12-20); Blood Urea Nitrogen 8 mg/dL (9-16); Calcium 9.3 mg/dL (8.4-10.2); Carbon Dioxide 24 mmol/L (22-29); Chloride 103 mmol/L (96-108); Creatinine Clr Calc Pharmacy 126.1; Estimated Glomerular Filt Rate > 60; Glucose Random 84 mg/dL (60-115); Potassium 4.2 mmol/L (3.3-5.1); Sodium 137 mmol/L (135-145)
[2021-09-07 07:41] VITALS: O2SAT 98
[2021-09-07 07:50] VITALS: BP 121/61; PULSE 69; RESP 18; TEMP 36.2; O2SAT 98
[2021-09-07] MEDS: Famotidine/PF 20 MG/2 ML VIAL IVPUSH (08:55)
[2021-09-07] MEDS: 0.9 % Sodium Chloride Flush 3 ML SYRINGE IVFLUSH (08:56)
--- NOTE | 2021-09-07 14:10 | HO.POSTANES ---
Post Anesthesia Evaluation Post Anesthesia Evaluation Vital Signs: Vital Signs Temp Pulse Resp BP Pulse Ox 09/07/21 07:50 97.2 F 69 18 121/61 98 09/07/21 07:41 98 09/07/21 04:00 96.8 F 74 16 126/62 98 Anesthesia: General Endotracheal-GETA Mental Status: Awake Pain Control: Satisfactory Nausea/Vomiting: None Hydration: Adequate Anesthesia-Related Issues: No Anes. Related Issues
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
== END 2021-09-07 10:25 | disposition home or self-care (01) | DRG 621 ==
LOC: HO.SSSA 10:05 → HO.S3 12:35
PROVIDERS: Nurse Practitioner; Physician Assistant Surgical; Admitting Provider Surgery; Visit Provider Surgery
PROC: 0DB64Z3 Excision of Stomach, Percutaneous Endoscopic Approach, Vertical (ICD-10-PCS; CPT 43845; principal; 2021-09-06 07:30)
DX: E66.01 Morbid (severe) obesity due to excess calories (principal); F31.9 Bipolar disorder, unspecified; F41.9 Anxiety disorder, unspecified; G47.00 Insomnia, unspecified; E28.2 Polycystic ovarian syndrome; I45.10 Unspecified right bundle-branch block; K66.0 Peritoneal adhesions (postprocedural) (postinfection); Z20.822 Contact with and (suspected) exposure to COVID-19; Z68.36 Body mass index [BMI] 36.0-36.9, adult; Z88.2 Allergy status to sulfonamides; Z87.891 Personal history of nicotine dependence; Z79.899 Other long term (current) drug therapy
CPT/HCPCS: 36415; 80048; 80053; 80061; 81025; 83036; 83525; 84443; 85007; 85014; 85018; 85025; 85027; 85610; 85730; 86140; 86850; 86900; 86901; 87635; 88307; 88342; 99024; A4649; J0131; J0690; J1100; J1170; J2250; J2405; J2550; J2765; J3010

== ENCOUNTER → 2021-09-14 07:36 | Outpatient (BNVA) | payer OTHER, SELFPAY | PROVIDERS: Visit Provider Surgery | DX: E66.9 Obesity, unspecified (principal); Z68.35 Body mass index [BMI] 35.0-35.9, adult; Z98.84 Bariatric surgery status | CPT/HCPCS: 99212 ==

== ENCOUNTER → 2021-10-15 07:23 | Outpatient (BNVA) | payer OTHER, SELFPAY | PROVIDERS: Visit Provider Surgery | DX: E66.9 Obesity, unspecified (principal); Z68.32 Body mass index [BMI] 32.0-32.9, adult | CPT/HCPCS: 99212 ==

== ENCOUNTER → 2021-11-23 08:35 | Outpatient (BNVA) | payer OTHER, SELFPAY | PROVIDERS: Visit Provider Surgery | DX: Z13.89 Encounter for screening for other disorder (principal) ==

== ENCOUNTER → 2022-07-29 13:23 | Outpatient (BNVA) | payer OTHER, SELFPAY | PROVIDERS: Visit Provider Physician Assistant Surgical | DX: E66.3 Overweight (principal); Z68.28 Body mass index [BMI] 28.0-28.9, adult; Z98.84 Bariatric surgery status | CPT/HCPCS: 99212 ==